=== PATIENT | female | born 1965 | race Caucasian/White ===

== ENCOUNTER 2018-05-16 07:48 | Observation (INO) | payer BC ==
[2018-05-16 08:28] LABS: URINE BLOOD (Dip) POC 3+ (NEGATIVE); URINE KETONES (Dip) POC Negative (NEGATIVE); URINE LEUKOCYTE EST (Dip) POC 3+ (NEGATIVE); URINE NITRITE (Dip) POC Negative (NEGATIVE); URINE TOTAL PROTEIN POC 3+ (NEGATIVE)
[2018-05-16] MEDS: ONDANSETRON (ODT) 4 MG TAB ODT (09:37)
[2018-05-16] MEDS: HYDROCODONE/APAP (5/325) TAB PO (09:37)
[2018-05-16 10:02] LABS: ADD MAN DIFF? NO
[2018-05-16 10:03] LABS: BASOPHILS % 0.3 % (0.0-2.0); EOSINOPHILS # 0.1 10^3/ul (0.0-0.5); EOSINOPHILS % 0.5 % (0.0-7.0); HEMATOCRIT 41.5 % (37.0-47.0); HEMOGLOBIN 14.2 g/dl (12.0-16.0); LYMPHOCYTES # 2.2 10^3/ul (0.8-2.9); MEAN CORPUSCULAR HEMOGLOBIN 29.9 pg (29.0-33.0); MEAN CORPUSCULAR HGB CONC 34.2 g/dl (32.0-37.0); MEAN CORPUSCULAR VOLUME 87.4 fl (82.0-101.0); MEAN PLATELET VOLUME 10.7 fl (7.4-10.4); MONOCYTE # 0.8 10^3/ul (0.3-0.9); MONOCYTES % 5.3 % (0.0-11.0); NEUTROPHIL # 11.6 10^3/ul (1.6-7.5); NEUTROPHILS % 78.6 % (39.0-77.0); PLATELET COUNT 247 10^3/UL (140-415); RED BLOOD COUNT 4.75 10^6/ul (4.20-5.40); RED CELL DISTRIBUTION WIDTH 13.3 % (11.5-14.5)
[2018-05-16 10:03] LABS: WHITE BLOOD COUNT 14.7 10^3/ul (4.8-10.8)
[2018-05-16 10:10] LABS: ADD UMIC YES; UR ASCORBIC ACID NEGATIVE (NEGATIVE); UR BACTERIA MODERATE /HPF (NONE SEEN); UR BILIRUBIN (Dip) NEGATIVE (NEGATIVE); UR BLOOD (Dip) 3+ mg/dL (NEGATIVE); UR CLARITY CLOUDY (CLEAR); UR COLOR RED (YELLOW); UR GLUCOSE (Dip) 3+ mg/dL (NEGATIVE); UR KETONES (Dip) NEGATIVE (NEGATIVE); UR LEUKOCYTE ESTERASE (Dip) 3+ Leu/ul (NEGATIVE); UR MUCUS FEW /HPF (NONE SEEN); UR NITRITE (Dip) NEGATIVE (NEGATIVE); UR NONSQUAMOUS EPITHELIAL CELL 3 /HPF (NONE SEEN); UR RBC 17 /HPF (0-5); UR SPECIFIC GRAVITY (Dip) 1.007 (1.003-1.030); UR SQUAMOUS EPITHELIAL CELL FEW /HPF (FEW); UR TOTAL PROTEIN (Dip) 1+ mg/dl (NEGATIVE); UR UROBILINOGEN (Dip) NEGATIVE (NEGATIVE); UR WBC > 182 /HPF (0-5)
[2018-05-16 10:33] LABS: ALANINE AMINOTRANSFERASE 33 IU/L (13-69); ALBUMIN 4.4 g/dl (3.3-4.9); ALBUMIN/GLOBULIN RATIO 1.18; ALKALINE PHOSPHATASE 81 IU/L (42-121); ANION GAP 18 (8-16); ASPARTATE AMINO TRANSFERASE 37 IU/L (15-46); BLOOD UREA NITROGEN 16 mg/dl (7-20); CALCIUM 9.8 mg/dl (8.4-10.2); CARBON DIOXIDE 26 mmol/L (21-31); CHLORIDE 102 mmol/L (97-110); CREATININE 0.82 mg/dl (0.44-1.00); GLUCOSE 105 mg/dl (70-220); LIPASE 51 U/L (23-300); SODIUM 143 mmol/L (135-144); TOTAL PROTEIN 8.1 g/dl (6.1-8.1)
[2018-05-16 10:41] LABS: POTASSIUM 2.8 mmol/L (3.5-5.1)
[2018-05-16] MEDS: POTASSIUM CHLORIDE (SR) 20 MEQ TAB PO (11:12)
[2018-05-16] MEDS: CEFTRIAXONE 1 GM/50 ML (PMX) 50 ML IVPB (11:13)
[2018-05-16] MEDS: morphine 4 MG/ML VIAL IV (17:37)
[2018-05-16] MEDS ORDERED: ONDANSETRON 4 MG INJ (17:47)
[2018-05-16] MEDS: ONDANSETRON 4 MG INJ IV (17:52)
[2018-05-16] MEDS ORDERED: POLYETHYLENE GLYCOL 17 GM PACKET PO (20:00)
[2018-05-16] MEDS ORDERED: ONDANSETRON 4 MG INJ IV (20:00)
[2018-05-16] MEDS ORDERED: NA PHOSPHATE/BIPHOS 133 ML ENEMA PR (20:00)
[2018-05-16] MEDS ORDERED: BISACODYL (EC) 5 MG TAB PO (20:00)
[2018-05-16] MEDS ORDERED: BISACODYL 10 MG SUPP PR (20:00)
[2018-05-16] MEDS ORDERED: MAGNESIUM HYDROXIDE 30ML CUP PO (20:00)
[2018-05-16] MEDS ORDERED: NACL 0.9% 3 ML SYG IV (20:00)
[2018-05-16] MEDS ORDERED: ACETAMINOPHEN 650 MG SUPP PR (20:00)
[2018-05-16] MEDS: INSULIN ASPART [NOVOLOG] 3 ML PEN SC (20:13)
[2018-05-16] MEDS ORDERED: DEXTROSE 50% 50 ML SYRINGE IV ×2 (20:30)
[2018-05-16] MEDS ORDERED: GLUCOSE GEL 15 GRAM TUBE PO ×2 (20:30)
[2018-05-16] MEDS ORDERED: GLUCOSE GEL 15 GRAM TUBE BUCCAL (20:30)
[2018-05-16] MEDS ORDERED: GLUCAGON 1 MG INJ IM (20:30)
[2018-05-16] MEDS: NS + KCL 20 MEQ 1,000 ML IV (20:39)
[2018-05-16] MEDS ORDERED: CALCIUM CARBONATE 1.25 GM TAB PO (21:00)
[2018-05-16] MEDS ORDERED: ATORVASTATIN 10 MG TAB PO (21:00)
[2018-05-17] MEDS: ACCU-CHEK XX ×2 (01:55→20:22)
[2018-05-17] MEDS: PANTOPRAZOLE 40 MG INJ IV (05:59)
[2018-05-17 07:23] LABS: ALANINE AMINOTRANSFERASE 28 IU/L (13-69); ALBUMIN 3.4 g/dl (3.3-4.9); ALBUMIN/GLOBULIN RATIO 1.06; ALKALINE PHOSPHATASE 64 IU/L (42-121); ANION GAP 14 (8-16); ASPARTATE AMINO TRANSFERASE 22 IU/L (15-46); BILIRUBIN,INDIRECT 0.9 mg/dl (0-1.1); BILIRUBIN,TOTAL 0.9 mg/dl (0.2-1.3); BLOOD UREA NITROGEN 15 mg/dl (7-20); CALCIUM 8.9 mg/dl (8.4-10.2); CARBON DIOXIDE 27 mmol/L (21-31); CHLORIDE 104 mmol/L (97-110); CREATININE 0.84 mg/dl (0.44-1.00); GLUCOSE 87 mg/dl (70-220); POTASSIUM 3.1 mmol/L (3.5-5.1); SODIUM 142 mmol/L (135-144); TOTAL PROTEIN 6.6 g/dl (6.1-8.1)
[2018-05-17] MEDS: INSULIN ASPART [NOVOLOG] 3 ML PEN SC ×4 (08:00→20:21)
[2018-05-17 09:02] LABS: HEMOGLOBIN A1C 6.4 % (0-5.9)
[2018-05-17] MEDS: NS + KCL 20 MEQ 1,000 ML IV ×2 (09:09→22:18)
[2018-05-17] MEDS: CALCIUM CARBONATE 1.25 GM TAB PO ×2 (09:09→20:21)
[2018-05-17] MEDS: BENAZEPRIL 10 MG TAB PO (09:10)
[2018-05-17] MEDS: METOPROLOL (XL) 50 MG TAB PO (09:10)
[2018-05-17] MEDS: ASPIRIN (EC) 81 MG TAB PO (09:10)
[2018-05-17] MEDS: DOCUSATE SODIUM 100 MG CAP PO (10:54)
[2018-05-17] MEDS: CEFTRIAXONE 1 GM/50 ML (PMX) 50 ML IVPB (10:54)
[2018-05-17] MEDS: POTASSIUM CHLORIDE 20 MEQ POWDER FOR ORAL SOLN PO (10:54)
[2018-05-17] MEDS: ACETAMINOPHEN 325 MG TAB PO ×2 (13:27→19:32)
[2018-05-17] MEDS: ATORVASTATIN 10 MG TAB PO (20:21)
[2018-05-18] MEDS: ACETAMINOPHEN 325 MG TAB PO (03:57)
[2018-05-18] MEDS: PANTOPRAZOLE (EC) 40 MG TAB PO (05:40)
[2018-05-18 06:09] LABS: ADD MAN DIFF? NO
[2018-05-18 06:18] LABS: BASOPHILS % 0.3 % (0.0-2.0); EOSINOPHILS # 0.3 10^3/ul (0.0-0.5); EOSINOPHILS % 3.9 % (0.0-7.0); HEMOGLOBIN 12.3 g/dl (12.0-16.0); LYMPHOCYTES # 2.9 10^3/ul (0.8-2.9); LYMPHOCYTES % 45.4 % (15.0-51.0); MEAN CORPUSCULAR HEMOGLOBIN 30.6 pg (29.0-33.0); MEAN CORPUSCULAR HGB CONC 34.2 g/dl (32.0-37.0); MEAN CORPUSCULAR VOLUME 89.6 fl (82.0-101.0); MEAN PLATELET VOLUME 10.8 fl (7.4-10.4); MONOCYTE # 0.6 10^3/ul (0.3-0.9); MONOCYTES % 9.8 % (0.0-11.0); NEUTROPHIL # 2.6 10^3/ul (1.6-7.5); NEUTROPHILS % 40.3 % (39.0-77.0); PLATELET COUNT 224 10^3/UL (140-415); RED BLOOD COUNT 4.02 10^6/ul (4.20-5.40)
[2018-05-18 06:18] LABS: WHITE BLOOD COUNT 6.4 10^3/ul (4.8-10.8)
[2018-05-18 07:02] LABS: ANION GAP 12 (8-16); BLOOD UREA NITROGEN 9 mg/dl (7-20); CALCIUM 8.1 mg/dl (8.4-10.2); CARBON DIOXIDE 24 mmol/L (21-31); CHLORIDE 111 mmol/L (97-110); CREATININE 0.69 mg/dl (0.44-1.00); GLUCOSE 100 mg/dl (70-220); POTASSIUM 3.9 mmol/L (3.5-5.1); SODIUM 143 mmol/L (135-144)
[2018-05-18] MEDS: INSULIN ASPART [NOVOLOG] 3 ML PEN SC ×3 (07:54→17:11)
[2018-05-18] MEDS: ASPIRIN (EC) 81 MG TAB PO (09:32)
[2018-05-18] MEDS: CALCIUM CARBONATE 1.25 GM TAB PO (09:32)
[2018-05-18] MEDS: METOPROLOL (XL) 50 MG TAB PO (09:33)
[2018-05-18] MEDS: BENAZEPRIL 10 MG TAB PO (09:33)
[2018-05-18 11:12] LABS: ADD UMIC YES; UR ASCORBIC ACID NEGATIVE (NEGATIVE); UR BILIRUBIN (Dip) NEGATIVE (NEGATIVE); UR BLOOD (Dip) 1+ mg/dL (NEGATIVE); UR CLARITY CLEAR (CLEAR); UR COLOR COLORLESS (YELLOW); UR GLUCOSE (Dip) 3+ mg/dL (NEGATIVE); UR KETONES (Dip) NEGATIVE (NEGATIVE); UR LEUKOCYTE ESTERASE (Dip) NEGATIVE Leu/ul (NEGATIVE); UR NITRITE (Dip) NEGATIVE (NEGATIVE); UR RBC 1 /HPF (0-5); UR TOTAL PROTEIN (Dip) NEGATIVE (NEGATIVE); UR UROBILINOGEN (Dip) NEGATIVE (NEGATIVE); UR WBC 0 /HPF (0-5)
[2018-05-18] MEDS: CEFTRIAXONE 1 GM/50 ML (PMX) 50 ML IVPB (11:50)
[2018-05-18] MEDS: metFORMIN 500 MG TAB PO (17:26)
== END 2018-05-18 18:10 | disposition home or self-care (01) ==
LOC: FTE 07:48 → PP2 11:56
DX: N39.0 Urinary tract infection, site not specified (principal); B96.20 Unspecified Escherichia coli [E. coli] as the cause of diseases classified elsewhere; K59.00 Constipation, unspecified; E11.9 Type 2 diabetes mellitus without complications; I10 Essential (primary) hypertension; E78.5 Hyperlipidemia, unspecified; D72.829 Elevated white blood cell count, unspecified; Z79.82 Long term (current) use of aspirin; Z79.84 Long term (current) use of oral hypoglycemic drugs
CPT/HCPCS: 36415; 74176; 80048; 80053; 81001; 81003; 81025; 82962; 83036; 83690; 85025; 87086; 96374; 96375; 99217; 99285-25; G0378